=== PATIENT | female | born 1970 | race Asian ===

== ENCOUNTER 2023-05-15 09:54 | Emergency (ER) | payer BC ==
[~2023-05-15] VITALS: Ht 154.9 cm; Wt 56.7 kg
[2023-05-15] MEDS ORDERED: diphenhydrAMINE HCL 50 MG/ML VIAL IV ONE (11:00)
[2023-05-15] MEDS ORDERED: PROCHLORPERAZINE EDISYLATE 10 MG/2 ML VIAL IVP ONE (11:00)
[2023-05-15] MEDS ORDERED: ACETAMINOPHEN ES 500 MG TABLET PO ONE (11:00)
[2023-05-15] MEDS ORDERED: IV NS 0.9% 1,000 ML BAG IV ONE (11:00)
[2023-05-15] MEDS ORDERED: diphenhydrAMINE HCL 50 MG/ML VIAL ONE (11:06)
[2023-05-15] MEDS ORDERED: PROCHLORPERAZINE EDISYLATE 10 MG/2 ML VIAL ONE (11:06)
[2023-05-15] MEDS ORDERED: ACETAMINOPHEN ES 500 MG TABLET ONE (11:07)
[2023-05-15 13:12] VITALS: BP 111/81; TEMP 98.1; O2SAT 100
== END 2023-05-15 13:12 | disposition home or self-care (01) ==
LOC: ER 10:07
DX: R51.9 Headache, unspecified (principal)
CPT/HCPCS: 99285; 96374; 70450; 96361; 96375; J0780; J1200; J7030